=== PATIENT | male | born 1945 | race Hispanic/Latino ===

== ENCOUNTER 2020-08-17 13:36 | Inpatient (IN) | payer OTHER ==
[~2020-08-17] VITALS: Ht 177.8 cm; Wt 108.3 kg
[2020-08-17 14:33] LABS: BASOPHILS % (AUTO) 0.9 % (0.0-5.0); EOSINOPHILS % (AUTO) 1.7 % (0.0-8.0); HEMATOCRIT 37.4 % (42-54); LYMPHOCYTES % (AUTO) 20.8 % (21.0-51.0); MEAN CORPUSCULAR HEMOGLOBIN 29.2 pg (27.0-33.0); MEAN CORPUSCULAR HGB CONC 32.9 g/dL (32.0-36.0); MEAN CORPUSCULAR VOLUME 88.8 fL (79-99); MONOCYTES % (AUTO) 8.8 % (3.0-13.0); NEUTROPHILS % (AUTO) 67.5 % (40.0-77.0); PLATELET COUNT (AUTO) 189 K/uL (130-400); RED BLOOD CELL COUNT(AUTO) 4.21 MIL/uL (4.50-6.20); RED CELL DISTRIBUTION WIDTH 13.5 % (11.0-15.5); WHITE BLOOD COUNT (AUTO) 6.5 K/uL (4.8-10.8)
[2020-08-17 14:35] VITALS: BP 146/65
[2020-08-17 14:37] LABS: CREATININE 1.3 mg/dL (0.5-1.5); POTASSIUM 4.1 mmol/L (3.5-5.1)
[2020-08-17 14:42] LABS: ALBUMIN 3.7 g/dL (3.5-5.0); BILIRUBIN,TOTAL 0.3 mg/dL (0.2-1.0); TOTAL PROTEIN, SERUM 6.8 g/dL (6.0-8.3)
[2020-08-17] MEDS ORDERED: GLUCAGON 1MG KIT 1 MG ML IM PRN (14:45)
[2020-08-17] MEDS ORDERED: POTASSIUM CHLORIDE 20 MEQ ERTAB PO PRN (14:45)
[2020-08-17] MEDS ORDERED: LIDOCAINE HCL-MPF 1% 2ML VIAL IJ PRN (14:45)
[2020-08-17] MEDS ORDERED: POTASSIUM CHLORIDE 20MEQ/100ML 100 ML IV PRN (14:45)
[2020-08-17] MEDS ORDERED: POTASSIUM CHLORIDE 10% ELIXIR 20 MEQ/15 ML UDCUP PO PRN (14:45)
[2020-08-17] MEDS ORDERED: DEXTROSE 50%-WATER 50 ML DISP.SYRIN IV PRN (14:45)
[2020-08-17 14:56] LABS: INR 1.14 (0.85-1.15); PARTIAL THROMBOPLASTIN TIME 28.2 SEC (26.3-35.5); PROTHROMBIN TIME 12.2 SEC (9.6-11.6)
[2020-08-17] MEDS: CLOPIDOGREL BISULFATE 75 MG TAB PO SCH (15:41)
[2020-08-17] MEDS: ASPIRIN 81 MG EC TAB PO SCH (15:41)
[2020-08-17] MEDS: LISINOPRIL 20 MG TABLET PO SCH (15:41)
[2020-08-17] MEDS: HYDROCHLOROTHIAZIDE 25 MG TABLET PO SCH (15:41)
[2020-08-17 16:00] VITALS: BP 166/71
[2020-08-17] MEDS: GLIPIZIDE 5 MG TABLET PO SCH (17:00)
[2020-08-17] MEDS: INSULIN R PO SSI SQ SCH ×2 (19:20→21:00)
[2020-08-17] MEDS: PHARMACY COMMUNICATION MISC SCH ×2 (19:30→23:30)
[2020-08-17] MEDS ORDERED: ATOR10TA69 PO (19:43)
[2020-08-17] MEDS ORDERED: CLOP75TA32 PO (19:43)
[2020-08-17] MEDS ORDERED: GLIP5TAB11 PO (19:43)
[2020-08-17] MEDS ORDERED: RANITIDINE PO (19:43)
[2020-08-17] MEDS ORDERED: METF-446 PO (19:43)
[2020-08-17] MEDS ORDERED: CARV25TA PO (19:43)
[2020-08-17] MEDS ORDERED: INSLAN SQ (19:43)
[2020-08-17] MEDS ORDERED: AEC81 PO (19:43)
[2020-08-17] MEDS ORDERED: AMLO-257 PO (19:43)
[2020-08-17] MEDS ORDERED: LISI1TAB29 PO (19:43)
[2020-08-17 20:06] VITALS: BP 152/66
[2020-08-17] MEDS: ATORVASTATIN CALCIUM 40 MG TABLET PO SCH (22:37)
[2020-08-17] MEDS: CARVEDILOL 25 MG TABLET PO SCH (22:37)
[2020-08-18] VITALS (7 sets, daily range): BP systolic 128–163; BP diastolic 50–71
[2020-08-18] MEDS: PHARMACY COMMUNICATION MISC SCH ×4 (03:30→15:30)
[2020-08-18] MEDS: INSULIN R PO SSI SQ SCH ×3 (07:30→16:30)
[2020-08-18] MEDS: GLIPIZIDE 5 MG TABLET PO SCH ×2 (08:00→17:00)
[2020-08-18] MEDS: CLOPIDOGREL BISULFATE 75 MG TAB PO SCH (09:00)
[2020-08-18] MEDS: ASPIRIN 81 MG EC TAB PO SCH (09:00)
[2020-08-18] MEDS: LISINOPRIL 20 MG TABLET PO SCH (17:51)
[2020-08-18] MEDS: HYDROCHLOROTHIAZIDE 25 MG TABLET PO SCH (17:51)
[2020-08-18] MEDS: CARVEDILOL 25 MG TABLET PO SCH ×2 (17:51→23:55)
[2020-08-18] MEDS ORDERED: HEPARIN SODIUM 1000UNIT/ML 10ML VIAL ONE ×2 (18:24→21:45)
[2020-08-18] MEDS ORDERED: NITROGLYCERIN 2 MG/VIAL VIAL IV ONE (18:24)
[2020-08-18] MEDS ORDERED: LIDOCAINE HCL 2% 20ML ONE (18:25)
[2020-08-18] MEDS ORDERED: IODIXANOL 320 MG/ML 100 ML VIAL ONE ×2 (18:25→22:12)
[2020-08-18] MEDS ORDERED: FENTANYL CITRATE PF 50 MCG/1 ML 2ML VIAL ONE ×2 (18:25→22:20)
[2020-08-18] MEDS ORDERED: MIDAZOLAM HCL 1 MG/ML 2ML VIAL ONE (18:25)
[2020-08-18] MEDS ORDERED: SODIUM BICARB 50MEQ 50ML VIAL 50 ML ONE (19:28)
[2020-08-18] MEDS: ATORVASTATIN CALCIUM 40 MG TABLET PO SCH (21:00)
[2020-08-18] MEDS ORDERED: NICARDIPINE HCL 25 MG/10 ML ML IV ONE ×2 (22:24→22:25)
[2020-08-18] MEDS ORDERED: CLOPIDOGREL BISULFATE 300 MG TAB ONE (22:47)
[2020-08-18] MEDS ORDERED: ASPIRIN 325MG EC TAB 325 MG TABLET.DR PO ONE (22:47)
[2020-08-18] MEDS ORDERED: SODIUM CHLORIDE 0.9% 500ML 500 ML IV ONE (23:54)
[2020-08-19] VITALS (12 sets, daily range): BP systolic 120–153; BP diastolic 51–66
[2020-08-19] MEDS: INSULIN R PO SSI SQ SCH ×3 (00:05→11:23)
[2020-08-19] MEDS ORDERED: SODIUM CHLORIDE 0.9% 500ML 500 ML IV ONE (02:09)
[2020-08-19] MEDS ORDERED: LISINOPRIL 20 MG TABLET PO SCH (02:15)
[2020-08-19 03:29] LABS: HEMATOCRIT 38.1 % (42-54); MEAN CORPUSCULAR HEMOGLOBIN 28.9 pg (27.0-33.0); MEAN CORPUSCULAR HGB CONC 32.5 g/dL (32.0-36.0); MEAN CORPUSCULAR VOLUME 88.8 fL (79-99); RED BLOOD CELL COUNT(AUTO) 4.29 MIL/uL (4.50-6.20); RED CELL DISTRIBUTION WIDTH 13.7 % (11.0-15.5)
[2020-08-19 03:44] LABS: CREATININE 1.1 mg/dL (0.5-1.5); POTASSIUM 3.9 mmol/L (3.5-5.1)
[2020-08-19] MEDS: GLIPIZIDE 5 MG TABLET PO SCH (08:03)
[2020-08-19] MEDS: HYDROCHLOROTHIAZIDE 25 MG TABLET PO SCH (08:03)
[2020-08-19] MEDS: CARVEDILOL 25 MG TABLET PO SCH (08:04)
[2020-08-19] MEDS: LISINOPRIL 20 MG TABLET PO SCH (08:05)
[2020-08-19] MEDS: CLOPIDOGREL BISULFATE 75 MG TAB PO SCH (08:05)
[2020-08-19] MEDS: ASPIRIN 81 MG EC TAB PO SCH (08:05)
== END 2020-08-19 13:30 | disposition home or self-care (01) | DRG 271 ==
LOC: EDH 13:36 → 4DH 13:37 → 2CH 08-18 22:47
PROVIDERS: ADMIT Internal Medicine; ATTEND Internal Medicine
PROC: 04CS3ZZ Extirpation of Matter from Left Posterior Tibial Artery, Percutaneous Approach (ICD-10-PCS; principal; 2020-08-18)
PROC: 04CU3ZZ Extirpation of Matter from Left Peroneal Artery, Percutaneous Approach (ICD-10-PCS; 2020-08-18)
PROC: 04CL3ZZ Extirpation of Matter from Left Femoral Artery, Percutaneous Approach (ICD-10-PCS; 2020-08-18)
PROC: 04CQ3ZZ Extirpation of Matter from Left Anterior Tibial Artery, Percutaneous Approach (ICD-10-PCS; 2020-08-18)
PROC: 047U3Z1 Dilation of Left Peroneal Artery using Drug-Coated Balloon, Percutaneous Approach (ICD-10-PCS; 2020-08-18)
PROC: 047L3Z1 Dilation of Left Femoral Artery using Drug-Coated Balloon, Percutaneous Approach (ICD-10-PCS; 2020-08-18)
PROC: 047S3ZZ Dilation of Left Posterior Tibial Artery, Percutaneous Approach (ICD-10-PCS; 2020-08-18)
PROC: 047Q3ZZ Dilation of Left Anterior Tibial Artery, Percutaneous Approach (ICD-10-PCS; 2020-08-18)
PROC: B41GYZZ Fluoroscopy of Left Lower Extremity Arteries using Other Contrast (ICD-10-PCS; 2020-08-18)
DX: E11.51 Type 2 diabetes mellitus with diabetic peripheral angiopathy without gangrene (principal); I50.42 Chronic combined systolic (congestive) and diastolic (congestive) heart failure; L97.329 Non-pressure chronic ulcer of left ankle with unspecified severity; I70.243 Atherosclerosis of native arteries of left leg with ulceration of ankle; I25.10 Atherosclerotic heart disease of native coronary artery without angina pectoris; I87.2 Venous insufficiency (chronic) (peripheral); I11.0 Hypertensive heart disease with heart failure; E66.9 Obesity, unspecified; E78.5 Hyperlipidemia, unspecified; E78.00 Pure hypercholesterolemia, unspecified; I87.309 Chronic venous hypertension (idiopathic) without complications of unspecified lower extremity; Z87.891 Personal history of nicotine dependence; Z95.1 Presence of aortocoronary bypass graft; Z68.34 Body mass index [BMI] 34.0-34.9, adult
CPT/HCPCS: 36415; 37225; 37229; 37233; 71045; 75710; 75716; 80048; 80053; 82948; 85025; 85027; 85347; 85610; 85730; 99156; 99157; C1724; C1769; C1893; C1894; G0378; J1644; J2250; J3010; J3490; J7040; Q9967

== ENCOUNTER 2021-08-07 05:43 | Day surgery (SDC) | payer OTHER ==
[2021-08-03 11:40] LABS: BASOPHILS % (AUTO) 1.2 % (0.0-5.0); EOSINOPHILS % (AUTO) 2.1 % (0.0-8.0); HEMATOCRIT 39.6 % (42-54); LYMPHOCYTES % (AUTO) 23.7 % (21.0-51.0); MEAN CORPUSCULAR HEMOGLOBIN 30.1 pg (27.0-33.0); MEAN CORPUSCULAR HGB CONC 33.3 g/dL (32.0-36.0); MEAN CORPUSCULAR VOLUME 90.4 fL (79-99); MONOCYTES % (AUTO) 8.1 % (3.0-13.0); NEUTROPHILS % (AUTO) 64.1 % (40.0-77.0); PLATELET COUNT (AUTO) 201 K/uL (130-400); RED BLOOD CELL COUNT(AUTO) 4.38 MIL/uL (4.50-6.20); RED CELL DISTRIBUTION WIDTH 13.2 % (11.0-15.5); WHITE BLOOD COUNT (AUTO) 7.6 K/uL (4.8-10.8)
[2021-08-03 11:43] LABS: APPEARANCE,URINE Clear (CLEAR); BILIRUBIN,URINE Negative (NEGATIVE); COLOR,URINE Yellow (YELLOW); GLUCOSE, URINE (UA) TRACE mg/dL (NEGATIVE); KETONES,URINE Negative (NEGATIVE); LEUKOCYTE ESTERASE ,URINE Negative (NEGATIVE); NITRATE,URINE Negative (NEGATIVE); OCCULT BLOOD,URINE Negative (NEGATIVE); PH,URINE 5.5 (5.0-8.0); PROTEIN,URINE POS 2+ mg/dL (NEGATIVE); UROBILINOGEN,URINE 0.2 mg/dL (0.2-1.0)
[2021-08-03 11:46] LABS: CREATININE 1.3 mg/dL (0.5-1.5); POTASSIUM 4.3 mmol/L (3.5-5.1)
[2021-08-03 11:51] LABS: INR 1.21 (0.85-1.15)
[2021-08-03 11:53] LABS: PARTIAL THROMBOPLASTIN TIME 29.7 SEC (26.3-35.5)
[2021-08-03 12:18] LABS: BACTERIA,URINE Rare /HPF (None Seen); RBC,URINE 0-1 /HPF (0-1); SQUAMOUS EPITHELIAL CELL,UR Rare /HPF (0-2); WBC,URINE 0-1 /HPF (0-1)
[2021-08-04 13:35] VITALS: BP 155/80
[~2021-08-07] VITALS: Ht 179.1 cm; Wt 111.1 kg
[2021-08-07] VITALS (11 sets, daily range): BP systolic 133–160; BP diastolic 58–83
[~2021-08-07 05:43] MED LIST: AEC81 PO; CARV25TA PO; CHOL100046 PO; CLOP75TA32 PO; CYAN1TAB44 PO; GLIP5TAB11 PO; INSLAN SQ; LISI1TAB53 PO; ROSU20TA31 PO
[2021-08-07] MEDS ORDERED: 0.9%NACL 1000ML 1,000 ML IV ONE (08:35)
[2021-08-07] MEDS ORDERED: NICARDIPINE 25MG INJ IV ONE (16:15)
[2021-08-07] MEDS ORDERED: HEPARIN 10,000 UNIT/10ML (1,000 UNIT/ML) VIAL ONE (16:15)
[2021-08-07] MEDS ORDERED: IOHEXOL-350 50ML VIAL IV ONE (16:15)
[2021-08-07] MEDS ORDERED: SODIUM BICARB 50MEQ 50ML VIAL 50 ML ONE (16:15)
[2021-08-07] MEDS ORDERED: NITROGLYCERIN 50MG VIAL IV ONE (16:15)
[2021-08-07] MEDS ORDERED: IOHEXOL 350 MG/ML 100ML INFUS..BTL IV ONE (16:15)
[2021-08-07] MEDS ORDERED: FENTANYL CITRATE PF 50 MCG/1 ML 2ML VIAL ONE (16:15)
[2021-08-07] MEDS ORDERED: MIDAZOLAM HCL 1 MG/ML 2ML VIAL ONE (16:15)
[2021-08-07] MEDS ORDERED: LIDOCAINE HCL 400MG/20ML VIAL ONE (16:15)
[2021-08-07] MEDS ORDERED: 0.9%NACL 1000ML 1,000 ML IV SCH (17:30)
== END 2021-08-07 21:42 | disposition home or self-care (01) ==
LOC: DAH 05:43
PROVIDERS: ATTEND Internal Medicine Cardiovascular Disease
DX: I25.119 Atherosclerotic heart disease of native coronary artery with unspecified angina pectoris (principal); I25.729 Atherosclerosis of autologous artery coronary artery bypass graft(s) with unspecified angina pectoris; I25.82 Chronic total occlusion of coronary artery; I44.0 Atrioventricular block, first degree; I49.3 Ventricular premature depolarization; I45.10 Unspecified right bundle-branch block; I11.0 Hypertensive heart disease with heart failure; I50.42 Chronic combined systolic (congestive) and diastolic (congestive) heart failure; E11.51 Type 2 diabetes mellitus with diabetic peripheral angiopathy without gangrene; E11.49 Type 2 diabetes mellitus with other diabetic neurological complication; E78.5 Hyperlipidemia, unspecified; I95.2 Hypotension due to drugs; Z79.82 Long term (current) use of aspirin; Z79.01 Long term (current) use of anticoagulants; Z79.899 Other long term (current) drug therapy; Z86.73 Personal history of transient ischemic attack (TIA), and cerebral infarction without residual deficits; Z82.49 Family history of ischemic heart disease and other diseases of the circulatory system; Z95.1 Presence of aortocoronary bypass graft; Z87.891 Personal history of nicotine dependence; Z79.4 Long term (current) use of insulin
CPT/HCPCS: 36415; 71045; 80048; 81001; 82948 ×3; 85025; 85610; 85730; 93005; 93459; A4215; A4216; A4221; A4222; A4223 ×3; A4606; A4663; C1760; C1769; C1894 ×2; J1644; J3490 ×4; J7030; Q9965 ×3; Q9967 ×2; J2250; J3010